=== PATIENT | male | born 1990 | race Caucasian/White ===

== ENCOUNTER 2016-05-24 14:23 | Emergency (ER) | payer MEDICAID ==
[~2016-05-24] VITALS: Ht 172.7 cm; Wt 75.0 kg
[~2016-05-24 14:23] MED LIST: ESCI10TA PO; ETOMIDATE 2 MG/ML 10 ML VIAL IVP ONE; SUCCINYLCHOLINE CHLORIDE 20 MG/ML 10 ML VIAL IVP ONE
[2016-05-24 14:43] VITALS: BP 105/77
[2016-05-24 14:51] LABS: ANION GAP 24 mmol/L (8-16); CALCIUM, TOTAL 8.8 mg/dL (8.8-10.5); CARBON DIOXIDE 16 mmol/L (22-29); CHLORIDE 103 mmol/L (98-107); CREATININE 1.44 mg/dL (0.60-1.30); GLOMERULAR FILTR. RATE CALC 59 mL/min (>60); POTASSIUM 4.4 mmol/L (3.5-5.1); SODIUM SERUM 143 mmol/L (136-145); UREA NITROGEN, BLOOD 12 mg/dL (7-18)
[2016-05-24 14:52] LABS: GLUCOSE,POINT OF CARE 96 MG/DL (70-110)
[2016-05-24 14:53] LABS: PROTHROMBIN TIME 10.6 SEC (9.4-11.6)
[2016-05-24 15:11] LABS: ADD UA MICROSCOPIC YES; APPEARANCE,URINE CLEAR (CLEAR); GLUCOSE, URINE (UA) NEGATIVE (NEGATIVE); KETONES,URINE NEGATIVE (NEGATIVE); LEUKOCYTE ESTERASE ,URINE TRACE (NEGATIVE); OCCULT BLOOD,URINE SMALL (NEGATIVE); PROTEIN,URINE NEGATIVE (NEGATIVE)
[2016-05-24 15:20] LABS: ALANINE AMINOTRANSFERASE 45 U/L (12-78); ALBUMIN 4.5 g/dL (3.4-5.0); ASPARTATE AMINOTRANSFERASE 42 U/L (15-37); BILIRUBIN,TOTAL 0.3 mg/dL (0.1-1.0); CREATINE KINASE MB 3.2 ng/mL (0-5); CREATINE KINASE, TOTAL 383 U/L (39-308); TOTAL PROTEIN, SERUM 8.4 g/dL (6.4-8.2)
[2016-05-24 15:34] LABS: SQUAMOUS EPITHELIAL CELL,UR Rare /LPF (None Seen)
[2016-05-24 15:35] LABS: URINALYSIS COMMENT Many Sperm seen.
[2016-05-24 16:29] LABS: ACETAMINOPHEN < 2 mcg/mL (10-30)
[2016-05-24] MEDS ORDERED: SODIUM BICARBONATE [ADULT] 8.4% 50 MEQ/50 ML SYRINGE IVP ONE (16:56)
[2016-05-24] MEDS ORDERED: ATROPINE SULFATE 0.1 MG/ML 10 ML SYRINGE IVP ONE (16:56)
[2016-05-24] MEDS ORDERED: EPINEPHrine 1:10,000 [1 MG/10 ML] SYRINGE IVP ONE (16:56)
[2016-05-24] MEDS ORDERED: DOPamine HCL/D5W 400 MG/250 ML IV BAG IV ONE (16:56)
== END 2016-05-24 17:14 | disposition expired ==
LOC: EMS 14:24
DX: I46.9 Cardiac arrest, cause unspecified (principal); R56.9 Unspecified convulsions; F17.210 Nicotine dependence, cigarettes, uncomplicated; F12.90 Cannabis use, unspecified, uncomplicated; F19.90 Other psychoactive substance use, unspecified, uncomplicated
CPT/HCPCS: 31500; 36415; 51702; 71010; 80053; 80307; 81001; 82550; 82553; 82962; 84484; 85610; 85730; 87086; 92950; 93005; 99291; G0481; J0171; J0330; J0461; J1265; J3490 ×2